=== PATIENT | male | born 1970 | race Hispanic/Latino ===

== ENCOUNTER 2021-10-05 07:18 | Emergency (ER) | payer OTHER ==
[~2021-10-05] VITALS: Ht 190.5 cm; Wt 108.9 kg
[2021-10-05 07:25] VITALS: BP 145/108
[2021-10-05] MEDS ORDERED: DICL50TA9 PO (08:19)
== END 2021-10-05 08:27 | disposition home or self-care (01) ==
LOC: EDH 07:18
DX: M77.9 Enthesopathy, unspecified (principal); M79.642 Pain in left hand; I10 Essential (primary) hypertension; E11.9 Type 2 diabetes mellitus without complications
CPT/HCPCS: 73130; 82948; 93005

== ENCOUNTER 2022-04-06 22:13 | Emergency (ER) | payer OTHER ==
[~2022-04-06] VITALS: Ht 188 cm; Wt 127.0 kg
[~2022-04-06 22:13] MED LIST: DICL50TA9 PO
[2022-04-06] MEDS ORDERED: CYCLOBENZAPRINE HCL 10 MG TABLET ONE (22:26)
[2022-04-06] MEDS ORDERED: KETOROLAC 30MG VIAL (30MG/ML) ONE (22:26)
[2022-04-06] MEDS ORDERED: NIFEDIPINE 10 MG CAP ONE (22:26)
[2022-04-06] MEDS ORDERED: 0.9% NACL 500ML IV.SOLN 500 ML IV ONE (22:27)
[2022-04-06] MEDS ORDERED: 0.9% NACL 500ML IV.SOLN 500 ML IV SCH (22:30)
[2022-04-06] MEDS ORDERED: PROMETHAZINE HCL 25 MG/ML 1ML AMPULE IM ONE (22:30)
[2022-04-06] MEDS ORDERED: CYCLOBENZAPRINE HCL 10 MG TABLET PO ONE (22:30)
[2022-04-06] MEDS ORDERED: KETOROLAC 30MG VIAL (30MG/ML) IVP ONE (22:30)
[2022-04-06] MEDS ORDERED: NIFEDIPINE 10 MG CAP PO ONE (22:30)
[2022-04-06 22:36] LABS: BASOPHILS % (AUTO) 0.6 % (0.0-5.0); EOSINOPHILS % (AUTO) 1.3 % (0.0-8.0); HEMATOCRIT 41.1 % (42-54); LYMPHOCYTES % (AUTO) 28.9 % (21.0-51.0); MEAN CORPUSCULAR HEMOGLOBIN 29.8 pg (27.0-33.0); MEAN CORPUSCULAR VOLUME 85.1 fL (79-99); MONOCYTES % (AUTO) 7.7 % (3.0-13.0); NEUTROPHILS % (AUTO) 61.2 % (40.0-77.0); PLATELET COUNT (AUTO) 236 K/uL (130-400); RED BLOOD CELL COUNT(AUTO) 4.83 MIL/uL (4.50-6.20); RED CELL DISTRIBUTION WIDTH 13.1 % (11.0-15.5); WHITE BLOOD COUNT (AUTO) 12.5 K/uL (4.8-10.8)
[2022-04-06] MEDS ORDERED: ONDANSETRON 4MG INJ ONE (22:41)
[2022-04-06] MEDS ORDERED: LORAZEPAM 2 MG/ML 1 ML VIAL ONE (22:53)
[2022-04-06 22:55] LABS: POTASSIUM 3.3 mmol/L (3.5-5.1)
[2022-04-06 22:56] LABS: INR 0.93 (0.85-1.15); PROTHROMBIN TIME 9.8 SEC (9.6-11.6)
[2022-04-06 22:58] LABS: PARTIAL THROMBOPLASTIN TIME 26.1 SEC (26.3-35.5)
[2022-04-06 23:00] LABS: ALBUMIN 3.8 g/dL (3.5-5.0); TOTAL PROTEIN, SERUM 7.4 g/dL (6.0-8.3)
[2022-04-06] MEDS ORDERED: ONDANSETRON 4MG INJ IVP ONE (23:00)
[2022-04-06] MEDS ORDERED: NAPR-1180 PO (23:50)
[2022-04-06] MEDS ORDERED: CYCL10TA16 PO (23:50)
[2022-04-06] MEDS ORDERED: ONDA4TAB10 PO (23:50)
[2022-04-07] MEDS ORDERED: POTASSIUM BICARB/CIT AC 25 MEQ TABLET.EFF PO ONE
[2022-04-07] MEDS ORDERED: DiphenhydrAMINE HCL 50 MG/ML VIAL IV ONE (01:00)
[2022-04-07] MEDS ORDERED: METOCLOPRAMIDE 10 MG/2 ML VIAL IVP ONE (01:00)
[2022-04-07] MEDS ORDERED: DEXAMETHASONE SOD PHOSPHATE 4 MG/ML 1ML VIAL IV ONE (01:00)
[2022-04-07 01:35] VITALS: BP 156/86
[2022-04-07] MEDS ORDERED: MORPHINE 2 MG SYG ONE (02:29)
[2022-04-07] MEDS ORDERED: MECLIZINE HCL 25 MG TABLET ONE (03:21)
[2022-04-07] MEDS ORDERED: MECL50TA3 PO (04:32)
== END 2022-04-07 04:47 | disposition home or self-care (01) ==
LOC: EDH 22:13
DX: G44.209 Tension-type headache, unspecified, not intractable (principal); I10 Essential (primary) hypertension; E11.9 Type 2 diabetes mellitus without complications; R42 Dizziness and giddiness; E66.01 Morbid (severe) obesity due to excess calories; Z68.35 Body mass index [BMI] 35.0-35.9, adult; Z20.822 Contact with and (suspected) exposure to COVID-19; Z79.899 Other long term (current) drug therapy; Z98.890 Other specified postprocedural states
CPT/HCPCS: 36415; 70450; 71045; 80053; 82948; 84484; 85025; 85610; 85730; 87635; 87804; 93005; 96361; 96372; 96374; 96375; C9803; J1100; J1200; J1885; J2060; J2405; J2765; J7040

== ENCOUNTER 2024-02-02 12:24 | Emergency (ER) | payer BC, OTHER ==
[~2024-02-02] VITALS: Ht 188 cm; Wt 122.5 kg
[~2024-02-02 12:24] MED LIST changes: +AEC81 PO; +AMLO5TAB4 PO; +ASPI-1443 PO; +ATOR40TA69 PO; +CLON0.1T PO; +CLOP-31 PO; -DICL50TA9 PO; +FAMO20TA8 PO; +GLIM4TAB36 PO; +LOSA25TA41 PO; +MECL-302 PO; +SITA1TAB6 PO; +TERB250T89 PO; +TOPI25TA42 PO
[2024-02-02 13:13] LABS: BASOPHILS # (AUTO) 0.06 K/uL (0.00-0.20); BASOPHILS % (AUTO) 0.7 % (0.0-5.0); EOSINOPHILS # (AUTO) 0.07 K/uL (0.00-0.70); EOSINOPHILS % (AUTO) 0.8 % (0.0-8.0); HEMATOCRIT 40.7 % (42-54); IMMATURE GRANULOCYTE ABSOLUTE 0.04 K/uL (0-1); LYMPHOCYTES % (AUTO) 22.3 % (21.0-51.0); MEAN CORPUSCULAR HEMOGLOBIN 29.9 pg (27.0-33.0); MEAN CORPUSCULAR HGB CONC 33.9 g/dL (32.0-36.0); MEAN CORPUSCULAR VOLUME 88.1 fL (79-99); MONOCYTES # (AUTO) 0.6 K/uL (0.1-1.0); MONOCYTES % (AUTO) 6.9 % (3.0-13.0); NEUTROPHILS # (AUTO) 6.2 K/uL (1.8-7.7); NEUTROPHILS % (AUTO) 68.9 % (40.0-77.0); PLATELET COUNT (AUTO) 262 K/uL (130-400); RED BLOOD CELL COUNT(AUTO) 4.62 MIL/uL (4.50-6.20); RED CELL DISTRIBUTION WIDTH 13.8 % (11.0-15.5); WHITE BLOOD COUNT (AUTO) 8.9 K/uL (4.8-10.8)
[2024-02-02 13:21] LABS: POTASSIUM 3.6 mmol/L (3.5-5.1)
[2024-02-02 13:24] LABS: INR 0.94 (0.85-1.15); PROTHROMBIN TIME 10.2 SEC (9.6-11.6)
[2024-02-02 13:42] LABS: B-TYPE NATRIURETIC PEPTIDE 27 pg/mL (0-100)
[2024-02-02 13:46] LABS: APPEARANCE,URINE CLEAR (CLEAR); BILIRUBIN,URINE NEGATIVE (NEGATIVE); COLOR,URINE YELLOW (YELLOW); GLUCOSE, URINE (UA) NEGATIVE (NEGATIVE); KETONES,URINE NEGATIVE (NEGATIVE); LEUKOCYTE ESTERASE ,URINE 75 Leu/uL (NEGATIVE); NITRATE,URINE NEGATIVE (NEGATIVE); OCCULT BLOOD,URINE NEGATIVE (NEGATIVE); PROTEIN,URINE 10 mg/dL (NEGATIVE)
[2024-02-02 13:54] LABS: ADD UA MICROSCOPIC YES
[2024-02-02 13:57] LABS: BACTERIA,URINE RARE /HPF (None Seen); MUCUS,URINE RARE LPF (None Seen); OTHER CASTS, URINE 3 /LPF (None Seen); RBC,URINE 0-1 /HPF (0-1)
[2024-02-02 18:40] VITALS: BP 116/86; PULSE 72; RESP 16; O2SAT 97
== END 2024-02-02 18:41 | disposition home or self-care (01) ==
LOC: EDH 12:24
DX: I63.89 Other cerebral infarction (principal); R07.89 Other chest pain; E66.01 Morbid (severe) obesity due to excess calories; E11.65 Type 2 diabetes mellitus with hyperglycemia; I10 Essential (primary) hypertension; F17.200 Nicotine dependence, unspecified, uncomplicated; Z79.82 Long term (current) use of aspirin; Z79.84 Long term (current) use of oral hypoglycemic drugs; Z79.899 Other long term (current) drug therapy; Z98.890 Other specified postprocedural states
CPT/HCPCS: 36415; 70450; 71045; 80048; 81001; 82550; 82948; 83880; 84484; 85025; 85610; 85730; 87086; 93005

== ENCOUNTER 2025-03-29 19:11 | Emergency (ER) | payer BC ==
[~2025-03-29] VITALS: Ht 188 cm; Wt 108.9 kg
--- NOTE | 2025-03-29 21:03 | HMCIMG ---
EXAM: CT Head Without IV contrast. CLINICAL HISTORY: Presents with right forehead laceration. TECHNIQUE: Axial computed tomography images of the head/brain without intravenous contrast. COMPARISON: CT brain dated 02/02/2024. FINDINGS: BRAIN: Mild chronic small vessel ischemic changes involving periventricular white matter. No evidence of acute hemorrhage. No mass lesion. No CT evidence for acute territorial infarct. No midline shift or extra-axial collections. VENTRICLES: No hydrocephalus. ORBITS: The orbits are unremarkable. SINUSES AND MASTOIDS: The paranasal sinuses and mastoid air cells are clear. BONES: No fracture. SOFT TISSUES: Minimal subgaleal swelling/hematoma measuring 2.5 mm in maximum thickness in the right frontal region. Focal defect in the right frontal scalp region measuring 0.7 x 2.5 cm (AP x TR) with few air foci in the adjacent subcutaneous plane of the scalp. IMPRESSION: No acute intracranial abnormality. Minimal subgaleal swelling/hematoma in the right frontal region. Focal defect in the right frontal scalp region with few air foci in the adjacent subcutaneous plane of the scalp. Consistent with laceration injury. Mild chronic small vessel ischemic changes involving periventricular white matter. /[place]
[2025-03-29] MEDS: LIDOCAINE HCL 1% 20 ML VIAL INJ ONE (22:03)
--- NOTE | 2025-03-29 22:30 | ERN ---
General Chief Complaint: Head Injury Stated Complaint: HEAD INJURY/ LACERATION Time Seen by MD: 19:12 Time Seen by Midlevel: 19:12 Source: patient History of Present Illness Initial Comments 54-year-old male presenting to the ER with the right forehead laceration. Patient states working outside he syndrome block hit his head. Denies loss consciousness. Denies being on any thinners Allergies: Coded Allergies: No Known Drug Allergies (Unverified Allergy, Unknown, 10/05/21) Home Meds Active Scripts Topiramate (Topamax) 25 Mg Tablet, 25 MG PO HS for 30 Days, #30 TAB Prov:CASE LEACH NP 06/22/22 Meclizine HCl (Meclizine HCl) 25 Mg Tablet, 25 MG PO TID PRN for DIZZINESS for 30 Days, #30 TAB Prov:CASE LEACH NP 06/22/22 Famotidine (Famotidine) 20 Mg Tablet, 20 MG PO BID for 30 Days, #30 TAB Prov:CASE LEACH NP 06/22/22 Clopidogrel Bisulfate (Plavix) 75 Mg Tablet, 75 MG PO DAILY for 30 Days, #30 TAB Prov:CASE LEACH NP 06/22/22 Atorvastatin Calcium (LIPITOR) 40 Mg Tablet, 40 MG PO HS for 30 Days, #30 TAB Prov:CASE LEACH NP 06/22/22 Aspirin (ASPIRIN 81 MG ECTAB) 81 Mg Ectab, 81 MG PO DAILY for 30 Days, #30 TAB.EC Prov:CASE LEACH NP 06/22/22 Amlodipine Besylate (Norvasc 5Mg Tab) 5 Mg Tablet, 10 MG PO DAILY for 30 Days, #30 TAB Prov:CASE LEACH NP 06/22/22 Reported Medications Glimepiride (Glimepiride) 4 Mg Tablet, 4 MG PO DAILY, TAB 06/19/22 Clonidine HCl (Clonidine HCl) 0.1 Mg Tablet, 0.1 MG PO DAILY PRN for IF SBP GREATER THAN 160, TAB 06/19/22 Losartan Potassium (Losartan Potassium) 25 Mg Tablet, 25 MG PO DAILY, TAB 06/19/22 Terbinafine HCl (Terbinafine HCl) 250 Mg Tablet, 250 MG PO DAILY, TAB 06/19/22 Aspirin (Aspirin EC) 81 Mg Tablet.dr, 81 MG PO DAILY, TAB 06/19/22 Sitagliptin Phos/Metformin HCl (Janumet 50-1,000 mg Tablet) 1 Each Tablet, 1 EACH PO DAILY, TAB 06/19/22 Past Medical History Past Medical History: Diabetes-Type II, Hypertension Medical History Other: HX OF STROKE W/ RT ARM WEAKNESS IN 2021 Past Surgical History: Other Surgical History Other: HERNIA REPAIR Family History Family History: Negative Social History Social History: Smokers, ETOH, Other ROS Dictation CONSTITUTIONAL: Negative except for HPI HEAD/FACE: Negative except for HPI EENT: Negative except for HPI RESPIRATORY: Negative except for HPI GASTROINTESTINAL/ABDOMINAL: Negative except for HPI GENITOURINARY: Negative except for HPI MUSCULOSKELETAL: Negative except for HPI INTEGUMENTARY: Negative except for HPI NEUROLOGICAL/PSYCH: Negative except for HPI HEMATOLOGIC/LYMPHATIC: Negative except for HPI All Systems Negative, Except as noted above. 13 point review of systems assessed and all negative except for above. Physical Exam Physical Exam Dictation Vital Signs reviewed General Appearance: Alert, oriented x 3, no acute distress, well developed, nourished. Head and Face: Right forehead laceration measuring 6 cm Eyes: PERRL, pink conjunctivas, eyelid no trauma, anterior chamber with arcus senilis. Ears: Pinnas intact and no signs of trauma or erythema ear canals clear and no discharge TM no erythema Nose: No discharge, no bleeding. Oropharynx: Mouth normal, tongue pink, pharynx clear,no erythema, tonsils no exudates, no abscesses noted, mucous membrane moist Neck: Supple, non-tender, no thyromegaly, no masses, no JVD, no bruits Breast:Deferred Chest:No tenderness, no crepitus, no paradoxical movement, no retractions Lungs:Clear, well-ventilated, symmetric, no rales, no wheezing, no rhonchi, no stridor, good breath sounds bilaterally Heart: Regular rate, regular rhythm, no murmur, no gallops Vascular: no peripheral edema, Abdomen: Soft, positive bowel sounds, nondistended, no guarding, nontender, no rebound, no masses no hepatomegaly, no splenomegaly, no Sosa's sign, no hernias. Rectal: Deferred Genital: Deferred Neurological: Normal speech, motor function intact, sensory function intact Musculoskeletal: Neck nontender, full range of motion, back nontender, full range of motion, Extremities: nontender, full range of motion Skin: Right forehead laceration measuring 6 cm Lymphatic: Deferred MDM MDM: Differential diagnosis: Intracranial bleed, scalp laceration, skull fracture There are no social concerns with this patient. Prescription drug management Prescriptions will include: Keflex Medical management and examination interpretation discussions were had by me with other qualified healthcare professionals as indicated for the patient's care. ED Course Orders Procedure Category Date Status Time Ct Head/Brain W/O CT 03/29/25 Resulted Contrast 19:29 Tetanus,Diphtheria PHA 03/29/25 Complete Tox [Adult] (Diphther 19:30 Lidocaine Hcl 1% 20ml PHA 03/29/25 Complete Vial (Lidocaine Hc 20:00 Laceration Tray Set CPOE 03/29/25 Transmitted Up (Er) 19:34 Ketorolac PHA 03/29/25 Complete Tromethamine 30mg/Ml 21:30 Ceftriaxone 1g Vial PHA 03/29/25 In Process (Rocephine 1g Inj) 22:30 Current Medications Medications (Trade) Dose Ordered Sig/Sherley Route PRN Reason Start Time Stop Time Status Last Admin Dose Admin Ceftriaxone Sodium (ROCEphine 1G INJ) 1 gm ONCE ONCE IM 03/29/25 22:30 03/29/25 22:31 03/29/25 22:23 Ketorolac Tromethamine (toRADol) 30 mg ONCE ONCE IM 03/29/25 21:30 03/29/25 21:31 DC 03/29/25 21:40 Lidocaine HCl (Lidocaine HCl 1% 20ml Vial) ONCE ONCE INJ 03/29/25 20:00 03/29/25 20:01 DC 03/29/25 22:03 Tetanus/ Diphtheria Toxoids Adsorbed (DiphthERIA-teTANUS TOXOID [ADULT]/ DECAVAC) 0.5 ml ONCE ONCE IM 03/29/25 19:30 03/29/25 19:31 DC 03/29/25 20:56 Vital Signs Date Time Temp Pulse Resp B/P (MAP) Pulse Ox O2 Delivery O2 Flow Rate FiO2 03/29/25 19:25 97.5 69 18 155/89 100 Room Air* 0 21 03/29/25 19:12 97.5 72 18 157/91 97 Room Air DX & DISP Disposition: Discharge Departure Impression: Primary Impression: Forehead laceration Condition: Stable Scripts Cephalexin Monohydrate (Keflex) 500 Mg Cap 500 MG PO TID for 5 Days, #15 CAP Prov: SHAMA BARRAGAN 03/29/25 Referrals: SELF,REFERRAL Time of Disposition: 22:32 I have reviewed the case, and I agree with, Diagnosis and Plan I performed the substantive portion of the visit. I have reviewed and personally made and approve the management plan that is documented in the note by myself or the KALLIE. I acknowledge for responsibility for the patient's management plan. SHAMA BARRAGAN Mar 29, 2025 22:30
[2025-03-29] MEDS ORDERED: CEPH500B PO (22:33)
[2025-03-29 22:37] VITALS: BP 141/78; PULSE 64; RESP 17; TEMP 98.1; O2SAT 100
== END 2025-03-29 22:43 | disposition home or self-care (01) ==
LOC: EDH 19:11
DX: S01.81XA Laceration without foreign body of other part of head, initial encounter (principal); E11.9 Type 2 diabetes mellitus without complications; I10 Essential (primary) hypertension; F17.200 Nicotine dependence, unspecified, uncomplicated; Z79.02 Long term (current) use of antithrombotics/antiplatelets; Z79.82 Long term (current) use of aspirin; Z79.84 Long term (current) use of oral hypoglycemic drugs; Z79.899 Other long term (current) drug therapy; Z86.73 Personal history of transient ischemic attack (TIA), and cerebral infarction without residual deficits; Z98.890 Other specified postprocedural states; W22.8XXA Striking against or struck by other objects, initial encounter; Y93.89 Activity, other specified; Y92.89 Other specified places as the place of occurrence of the external cause; Y99.8 Other external cause status
CPT/HCPCS: 99284; 70450; 90714; 90471; 12014; 96372 ×2; J1885; J0696

== ENCOUNTER → 2025-04-08 | Emergency (ER) | payer BC ==
[~2025-04-08] VITALS: Ht 188 cm; Wt 108.9 kg
[~2025-04-08] MED LIST changes: +CEPH500B PO
[2025-04-08 10:59] VITALS: BP 157/95; PULSE 91; RESP 18; TEMP 98.2
--- NOTE | 2025-04-08 11:08 | ERN ---
ED Note History of Present Illness Stated Complaint: SUTURE REMOVAL Chief Complaint: Suture/Staple Removal Time Seen by MD: 10:59 Dictation: PATIENT IS A 54-YEAR-OLD MALE HERE WITH REQUEST FOR SUTURE REMOVAL TO HIS FOREHEAD LACERATION. HE HAD A TRAUMA TO HIS HEAD ON 03/29, CAME TO THE EMERGENCY ROOM AND HAD SEVEN SUTURES PLACED TO A LACERATION TO HIS RIGHT FOREHEAD. HE STATES HE HAS HAD NO FEVER NO CHILLS NO NAUSEA VOMITING. THERE WAS NO ERYTHEMA TENDERNESS NO PRIMARY CARE DOCTOR Allergies: Coded Allergies: No Known Drug Allergies (Unverified Allergy, Unknown, 10/05/21) Home Meds Active Scripts Cephalexin Monohydrate (Keflex) 500 Mg Cap, 500 MG PO TID for 5 Days, #15 CAP Prov:SHAMA BARRAGAN 03/29/25 Topiramate (Topamax) 25 Mg Tablet, 25 MG PO HS for 30 Days, #30 TAB Prov:CASE LEACH NP 06/22/22 Meclizine HCl (Meclizine HCl) 25 Mg Tablet, 25 MG PO TID PRN for DIZZINESS for 30 Days, #30 TAB Prov:CASE LEACH NP 06/22/22 Famotidine (Famotidine) 20 Mg Tablet, 20 MG PO BID for 30 Days, #30 TAB Prov:CASE LEACH NP 06/22/22 Clopidogrel Bisulfate (Plavix) 75 Mg Tablet, 75 MG PO DAILY for 30 Days, #30 TAB Prov:CASE LEACH NP 06/22/22 Atorvastatin Calcium (LIPITOR) 40 Mg Tablet, 40 MG PO HS for 30 Days, #30 TAB Prov:CASE LEACH NP 06/22/22 Aspirin (ASPIRIN 81 MG ECTAB) 81 Mg Ectab, 81 MG PO DAILY for 30 Days, #30 TAB.EC Prov:CASE LEACH NP 06/22/22 Amlodipine Besylate (Norvasc 5Mg Tab) 5 Mg Tablet, 10 MG PO DAILY for 30 Days, #30 TAB Prov:CASE LEACH NP 06/22/22 Reported Medications Glimepiride (Glimepiride) 4 Mg Tablet, 4 MG PO DAILY, TAB 06/19/22 Clonidine HCl (Clonidine HCl) 0.1 Mg Tablet, 0.1 MG PO DAILY PRN for IF SBP GREATER THAN 160, TAB 06/19/22 Losartan Potassium (Losartan Potassium) 25 Mg Tablet, 25 MG PO DAILY, TAB 06/19/22 Terbinafine HCl (Terbinafine HCl) 250 Mg Tablet, 250 MG PO DAILY, TAB 06/19/22 Aspirin (Aspirin EC) 81 Mg Tablet.dr, 81 MG PO DAILY, TAB 06/19/22 Sitagliptin Phos/Metformin HCl (Janumet 50-1,000 mg Tablet) 1 Each Tablet, 1 EACH PO DAILY, TAB 06/19/22 Past Medical History Past Medical History: Diabetes-Type II, Hypertension Additional Past Medical Hx: HX OF STROKE W/ RT ARM WEAKNESS IN 2021 Surgical History: Other Surgical History Other: HERNIA REPAIR Family History: Negative Social History: Smokers, ETOH, Other RN Note Reviewed/Agreed w/PFSH: Yes Review of System Dictation CONSTITUTIONAL: NEGATIVE EXCEPT FOR HPI HEAD/FACE: NEGATIVE EXCEPT FOR HPI EENT: NEGATIVE EXCEPT FOR HPI RESPIRATORY: NEGATIVE EXCEPT FOR HPI GASTROINTESTINAL/ABDOMINAL: NEGATIVE EXCEPT FOR HPI GENITOURINARY: NEGATIVE EXCEPT FOR HPI MUSCULOSKELETAL: NEGATIVE EXCEPT FOR HPI INTEGUMENTARY: NEGATIVE EXCEPT FOR HPI LACERATION WAS SEVEN SIMPLE INTERRUPTED SUTURES NEUROLOGICAL/PSYCH: NEGATIVE EXCEPT FOR HPI HEMATOLOGIC/LYMPHATIC: NEGATIVE EXCEPT FOR HPI ALL SYSTEMS NEGATIVE, EXCEPT NOTED ABOVE. 13 POINT REVIEW OF SYSTEMS ASSESSED AND ALL NEGATIVE EXCEPT FOR ABOVE. Initial Vital Sign VS Vital Signs Date Time Temp Pulse Resp B/P (MAP) Pulse Ox O2 Delivery O2 Flow Rate FiO2 04/08/25 10:59 98.2 91 18 157/95 97 Room Air Physical Exam Dictation VITAL SIGNS REVIEWED GENERAL APPEARANCE: ALERT, ORIENTED X 3, NO ACUTE DISTRESS, WELL DEVELOPED, NOURISHED. HEAD AND FACE: NON-TRAUMATIC. RIGHT FOREHEAD WITH SUTURE LINE. WELL APPROXIMATED NO INFLAMMATION NO SWELLING. EYES: PERRL, PINK CONJUNCTIVAS, EYELID NO TRAUMA, ANTERIOR CHAMBER WITH ARCUS SENILIS. EARS: PINNAS INTACT AND NO SIGNS OF TRAUMA OR ERYTHEMA EAR CANALS CLEAR AND NO DISCHARGE TM NO ERYTHEMA NOSE: NO DISCHARGE, NO BLEEDING. OROPHARYNX: MOUTH NORMAL, TONGUE PINK, PHARYNX CLEAR,NO ERYTHEMA, TONSILS NO EXUDATES, NO ABSCESSES NOTED, MUCOUS MEMBRANE MOIST NECK: SUPPLE, NON-TENDER, NO THYROMEGALY, NO MASSES, NO JVD, NO BRUITS BREAST:DEFERRED CHEST:NO TENDERNESS, NO CREPITUS, NO PARADOXICAL MOVEMENT, NO RETRACTIONS LUNGS:CLEAR, WELL-VENTILATED, SYMMETRIC, NO RALES, NO WHEEZING, NO RHONCHI, NO STRIDOR, GOOD BREATH SOUNDS BILATERALLY HEART: REGULAR RATE, REGULAR RHYTHM, NO MURMUR, NO GALLOPS VASCULAR: NO PERIPHERAL EDEMA, ABDOMEN: SOFT, POSITIVE BOWEL SOUNDS, NONDISTENDED, NO GUARDING, NONTENDER, NO REBOUND, NO MASSES NO HEPATOMEGALY, NO SPLENOMEGALY, NO LYONS'S SIGN, NO HERNIAS. RECTAL: DEFERRED GENITAL: DEFERRED NEUROLOGICAL: NORMAL SPEECH, MOTOR FUNCTION INTACT, SENSORY FUNCTION INTACT MUSCULOSKELETAL: NECK NONTENDER, FULL RANGE OF MOTION, BACK NONTENDER, FULL RANGE OF MOTION, EXTREMITIES: NONTENDER, FULL RANGE OF MOTION SKIN: COLOR PINK, DRY, NO TURGOR, NO RASH, NO LACERATIONS, NO ABRASIONS, NO CONTUSIONS. LYMPHATIC: DEFERRED Results (Laboratory/Radiology) Labs Reviewed?: Yes ED Course ED Course Vital Signs Date Time Temp Pulse Resp B/P (MAP) Pulse Ox O2 Delivery O2 Flow Rate FiO2 04/08/25 10:59 98.2 91 18 157/95 97 Room Air Medical Decision Making [facility] 1420/PATIENT WAS CALLED 3 TIMES IN THE WAITING ROOM WITH NO ANSWER. BUSINESS OFFICE STATES HE WALKED OUT OF THE BUILDING DID NOT INFORMED THE EMERGENCY ROOM STAFF. DX & DISP Disposition: AMA Departure Impression: Primary Impression: Forehead laceration Condition: Stable Referrals: APPLE BURGOS MSN,HEART DOCTOR (PCP) Time of Disposition: 14:21 I have reviewed the case, and I agree with, Diagnosis and Plan LIT DANIELS NP Apr 08, 2025 11:08
--- NOTE | 2025-04-08 14:05 | NUR ---
PT CALLED BUT NO ANSWER AT THIS TIME.
--- NOTE | 2025-04-08 14:12 | NUR ---
PT CALLED AGAIN. NO ANSWER. NO ONE SAW THE PT LEAVE.
--- NOTE | 2025-04-08 14:13 | NUR ---
PT WAS SEEN BY LIT CARDEANS, BUT HAD PENDING POSSIBLE SUTURE REMOVALS.
== END ==
LOC: EDH 10:58
DX: S01.81XD Laceration without foreign body of other part of head, subsequent encounter (principal); E11.9 Type 2 diabetes mellitus without complications; I10 Essential (primary) hypertension; F17.200 Nicotine dependence, unspecified, uncomplicated; Z79.02 Long term (current) use of antithrombotics/antiplatelets; Z79.82 Long term (current) use of aspirin; Z79.84 Long term (current) use of oral hypoglycemic drugs; Z79.899 Other long term (current) drug therapy; Z86.73 Personal history of transient ischemic attack (TIA), and cerebral infarction without residual deficits; Z98.890 Other specified postprocedural states; X58.XXXD Exposure to other specified factors, subsequent encounter
CPT/HCPCS: 99282